=== PATIENT | male | born 1965 | race Two or more races ===

== ENCOUNTER → 2022-02-25 | Outpatient (CLI) | payer OTHER ==
[2022-02-25 15:30] LABS: Microalb/Creat Ratio UR, Rand 7.014 mg/g (0.000-30.000); Microalbumin, Random Urine 9.89 mg/L (0.000-20.000)
== END | disposition home or self-care (01) ==
LOC: LAB 13:00 → LAB SHORT 13:00
PROVIDERS: Family Medicine
DX: I10 Essential (primary) hypertension (principal)
CPT/HCPCS: 82043; 82570

== ENCOUNTER 2022-05-14 07:38 | Day surgery (SDC) | payer OTHER ==
[~2022-05-14] VITALS: Ht 175.3 cm; Wt 75.4 kg
[2022-05-14] MEDS ORDERED: LISI20 (08:09)
[2022-05-14] MEDS ORDERED: AMLO5 PO (08:09)
[2022-05-14] MEDS ORDERED: OMEP20ER PO (08:10)
[2022-05-14] MEDS ORDERED: ASPIR 8181 M1 PO (08:11)
[2022-05-14] MEDS ORDERED: FENO145 PO (08:11)
[2022-05-14] MEDS ORDERED: ATOR20 PO (08:11)
[2022-05-14] MEDS ORDERED: CENTRUM SILVER1 EAC2 PO (08:13)
[2022-05-14] MEDS ORDERED: FISH OIL 1,2001 EAC7 PO (08:13)
[2022-05-14] MEDS ORDERED: ACET500 PO (08:14)
[2022-05-14] MEDS ORDERED: BENADRYL25 MG PO (08:15)
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
--- NOTE | 2022-05-14 12:19 | NUR ---
Discharge instructions reviewed with patient. Patient verbalizes understanding. Copy given to patient to take home. Patient States Post-Procedure ride home has been arranged. Discharged via wheelchair to private car for ride home.
== END 2022-05-14 23:37 | disposition home or self-care (01) ==
LOC: ORSCMMR 07:38
PROVIDERS: Surgery
PROC: 0JH63WZ Insertion of Totally Implantable Vascular Access Device into Chest Subcutaneous Tissue and Fascia, Percutaneous Approach (ICD-10-PCS; principal; 2022-05-14 10:00)
PROC: B543ZZA Ultrasonography of Right Jugular Veins, Guidance (ICD-10-PCS; principal; 2022-05-14 10:00)
PROC: 05HM33Z Insertion of Infusion Device into Right Internal Jugular Vein, Percutaneous Approach (ICD-10-PCS; principal; 2022-05-14 10:00)
DX: C34.31 Malignant neoplasm of lower lobe, right bronchus or lung (principal); I10 Essential (primary) hypertension; Z87.891 Personal history of nicotine dependence; Z86.73 Personal history of transient ischemic attack (TIA), and cerebral infarction without residual deficits; Z79.899 Other long term (current) drug therapy; Z79.82 Long term (current) use of aspirin
CPT/HCPCS: 77001; C1788; J0690; J1642; J2250; J2704; J3010; J7120

== ENCOUNTER 2022-08-23 06:45 | Emergency (ER) | payer MEDICARE, OTHER ==
[~2022-08-23] VITALS: Ht 172.7 cm; Wt 72.6 kg
[~2022-08-23 06:45] MED LIST: ACET500 PO; AMLO5 PO; ASPIR 8181 M1 PO; ATOR20 PO; BENADRYL25 MG PO; CENTRUM SILVER1 EAC2 PO; FENO145 PO; FISH OIL 1,2001 EAC7 PO; LISI20; OMEP20ER PO
[2022-08-23 08:36] LABS: Hematocrit 27.1 % (37.0-53.0); Hemoglobin 9.4 g/dL (13.5-17.5); Mean Corpuscular HGB 33.3 pg (26.0-34.0); Mean Corpuscular HGB Conc 34.7 g/dL (31.5-36.5); Mean Corpuscular Volume 96 fL (80-100); Mean Platelet Volume 9.8 fL (9.1-12.4); NRBC ABSOLUTE 0.03 K/mm3 (0.00-0.02); NRBC Auto 1.1 /100 WBC (0.0-0.2); Platelet Count 66 K/mm3 (150-400); RDW Coefficient Variation 16.4 % (11.7-14.2); RDW Standard Deviation 55.7 fL (35.1-46.3); Red Blood Cell Count 2.82 M/mm3 (4.30-5.90)
[2022-08-23 08:55] LABS: Albumin, Blood 3.3 g/dL (3.4-5.0); Albumin/Globulin Ratio 0.8 (0.8-1.8); BAND PERCENT MAN 2 % (0-8); BASOPHILS PERCENT MAN 0 % (0-2); Bilirubin, Total 0.7 mg/dL (0.1-1.0); Bun/Creatinine Ratio 16.3 (12.0-20.0); Creatinine, Blood 0.62 mg/dL (0.60-1.20); EOSINOPHILS PERCENT MAN 0 % (0-6); Globulin, Blood 3.9 g/dL (2.2-4.0); LYMPHOCYTES ABSOLUTE MAN 1.72 K/mm3 (0.84-5.20); LYMPHOCYTES PERCENT MAN 64 % (21-46); MONOCYTES ABSOLUTE MAN 0.24 K/mm3 (0.16-1.47); MONOCYTES PERCENT MAN 9 % (4-13); MYELOCYTE ABSOLUTE MAN 0.05 K/mm3 (0.00-0.00); MYELOCYTE PERCENT MAN 2 % (0-0); NEUTROPHILS ABSOLUTE MAN 0.67 K/mm3 (1.96-9.15); Potassium, Blood 3.7 mmol/L (3.5-5.5); SEG NEUTROPHILS PERCENT MAN 23 % (41-73); TOTAL CELLS COUNTED 100; Total Protein, Blood 7.2 g/dL (6.4-8.2)
[2022-08-23 12:32] LABS: Source, Urine Straight Cath
[2022-08-23 12:38] LABS: Bilirubin, Urine Neg (Neg); Blood, Urine Neg (Neg); Glucose Qualitative, Urine Neg (Neg); Ketones, Urine Neg (Neg); Leukocyte Esterase, Urine Neg (Neg); Nitrite, Urine Neg (Neg); Protein, Urine 1+ (Neg); Urobilinogen, Urine 1+ (Normal)
[2022-08-23 12:48] LABS: Appearance, Urine Clear (Clear); Color, Urine Yellow (P-Yellow)
[2022-08-23 14:00] VITALS: BP 108/78
== END 2022-08-23 14:07 | disposition home or self-care (01) ==
LOC: ER 06:45
PROVIDERS: Emergency Medicine; Student in an Organized Health Care Education/Training Program
DX: R53.1 Weakness (principal); Z88.8 Allergy status to other drugs, medicaments and biological substances; Z79.82 Long term (current) use of aspirin
CPT/HCPCS: 80053; 85025; 93005; 93010; J7030

== ENCOUNTER 2022-09-08 15:55 | Emergency (ER) | payer MEDICARE, OTHER ==
[~2022-09-08] VITALS: Ht 172.7 cm; Wt 75.8 kg
[2022-09-08 16:48] LABS: BASOPHILS ABSOLUTE AUTO 0.04 K/mm3 (0.00-0.23); BASOPHILS PERCENT AUTO 1 % (0-2); EOSINOPHILS ABSOLUTE AUTO 0.01 K/mm3 (0.00-0.68); EOSINOPHILS PERCENT AUTO 0 % (0-6); Hematocrit 24.7 % (37.0-53.0); Hemoglobin 7.9 g/dL (13.5-17.5); IMMATURE GRAN PERCENT AUTO 4 % (0-1); LYMPHOCYTES ABSOLUTE AUTO 1.51 K/mm3 (0.84-5.20); LYMPHOCYTES PERCENT AUTO 19 % (21-46); MONOCYTES ABSOLUTE AUTO 1.13 K/mm3 (0.16-1.47); MONOCYTES PERCENT AUTO 14 % (4-13); Mean Corpuscular HGB 32.9 pg (26.0-34.0); Mean Corpuscular Volume 103 fL (80-100); Mean Platelet Volume 8.9 fL (9.1-12.4); NEUTROPHILS PERCENT AUTO 63 % (41-73); NRBC ABSOLUTE 0.04 K/mm3 (0.00-0.02); NRBC Auto 0.5 /100 WBC (0.0-0.2); Platelet Count 240 K/mm3 (150-400); RDW Coefficient Variation 19.1 % (11.7-14.2); RDW Standard Deviation 70.4 fL (35.1-46.3); White Blood Cell Count 8.09 K/mm3 (4.00-11.30)
[2022-09-08 17:06] LABS: Albumin, Blood 2.9 g/dL (3.4-5.0); Albumin/Globulin Ratio 0.7 (0.8-1.8); Bilirubin, Total 0.4 mg/dL (0.1-1.0); Bun/Creatinine Ratio 9.2 (12.0-20.0); Calcium, Blood 8.9 mg/dL (8.5-10.1); Creatinine, Blood 0.65 mg/dL (0.60-1.20); Globulin, Blood 4.1 g/dL (2.2-4.0); Potassium, Blood 3.9 mmol/L (3.5-5.5)
[2022-09-08 19:32] LABS: Source, Urine Clean Catch
[2022-09-08 19:37] LABS: Appearance, Urine Clear (Clear); Bilirubin, Urine Neg (Neg); Blood, Urine Neg (Neg); Color, Urine Yellow (P-Yellow); Glucose Qualitative, Urine Neg (Neg); Ketones, Urine Neg (Neg); Leukocyte Esterase, Urine Neg (Neg); Nitrite, Urine Neg (Neg); Protein, Urine Neg (Neg); Specific Gravity, Urine 1.015 (1.003-1.022); Urobilinogen, Urine NORM (Normal)
[2022-09-08 20:15] VITALS: BP 106/68
== END 2022-09-08 20:41 | disposition home or self-care (01) ==
LOC: ER 15:55
PROVIDERS: Emergency Medicine; Physician Assistant
DX: R53.81 Other malaise (principal); E86.0 Dehydration; D64.9 Anemia, unspecified; C34.90 Malignant neoplasm of unspecified part of unspecified bronchus or lung; Z79.899 Other long term (current) drug therapy
CPT/HCPCS: 71045; 80053; 81003; 85025; J0780; J1200; J7030